=== PATIENT | male | born 1940 | race Caucasian/White ===

== ENCOUNTER 2017-09-27 09:35 | Day surgery (SDC) | payer BC, OTHER ==
[2017-09-26 09:55] VITALS: BMI 30.2
[2017-09-27] MEDS ORDERED: ACETAMINOPHEN 325 MG TABLET (FP) PO PRN (09:46)
[2017-09-27] MEDS ORDERED: GENTAMICIN SULFATE 0.3% OPHTHALMIC (EYE DROPS) 5ML BOTTLE ONE (10:15)
[2017-09-27] MEDS ORDERED: CYCLOPENTOLATE HCL 1% OPHTH SOLN 2 ML BOTTLE ONE (10:15)
[2017-09-27] MEDS ORDERED: PHENYLEPHRINE 2.5% OPHTH SOLN 15 ML BOTTLE ONE (10:16)
[2017-09-27] MEDS ORDERED: TROPICAMIDE 1% OPHTH SOLN 15 ML BOTTLE ONE (10:16)
[2017-09-27] MEDS ORDERED: KETOROLAC TROMETHAMINE 0.5% 5 ML BOTTLE OPTHALMIC ONE (10:16)
[2017-09-27] MEDS: KETOROLAC TROMETHAMINE 0.5% 5 ML BOTTLE OPTHALMIC OD SCH ×5 (10:40→11:00)
[2017-09-27] MEDS: CYCLOPENTOLATE HCL 1% OPHTH SOLN 2 ML BOTTLE OD SCH ×5 (10:40→11:00)
[2017-09-27] MEDS: TROPICAMIDE 1% OPHTH SOLN 15 ML BOTTLE OD SCH ×5 (10:40→11:00)
[2017-09-27] MEDS: GENTAMICIN SULFATE 0.3% OPHTHALMIC (EYE DROPS) 5ML BOTTLE OD SCH ×5 (10:40→11:00)
[2017-09-27] MEDS: PHENYLEPHRINE 2.5% OPHTH SOLN 15 ML BOTTLE OD SCH ×5 (10:40→11:00)
[2017-09-27] MEDS ORDERED: BUPIVACAINE HCL/PF 0.5% (5MG/ML) 10 ML VIAL ONE (10:44)
[2017-09-27] MEDS ORDERED: POVIDONE-IODINE 5% OPHTHALMIC PREP 30 ML SOLUTION ONE (10:44)
[2017-09-27] MEDS ORDERED: ACETYLCHOLINE 1:100 INTRA-OCUL 20 MG/2 ML KIT ONE ×2 (10:44→13:41)
[2017-09-27] MEDS ORDERED: LIDOCAINE HCL/PF 2% SDV 5ML VIAL ONE (10:44)
[2017-09-27] MEDS ORDERED: LACTATED RINGERS SOLUTION 1,000 ML IV SCH (11:00)
[2017-09-27] MEDS ORDERED: ONDANSETRON 4 MG/2 ML VIAL IVPUSH PRN (11:29)
[2017-09-27] MEDS ORDERED: MIDAZOLAM HCL 2 MG/2 ML SINGLE DOSE VIAL ONE ×2 (13:35→15:24)
[2017-09-27] MEDS ORDERED: TRYPAN BLUE 0.5 ML DISP.SYRIN ONE (14:20)
[2017-09-27] MEDS ORDERED: BSS (NA/CA/MG/K) BALANCED SALT SOLUTION OPHTH SOLN 15 ML BOTTLE ONE (15:57)
[2017-09-27 16:45] VITALS: TEMP 97.7
[2017-09-27 18:07] VITALS: BP 154/77; PULSE 88
--- NOTE | 2017-09-28 10:59 | OP ---
DATE OF OPERATION: 09/27/2017 AGE: [age] years old. SEX: Male. PREOPERATIVE DIAGNOSIS: Hypermature cataract, brunescent nucleus, right eye. POSTOPERATIVE DIAGNOSIS: Hypermature cataract, brunescent, right eye. PROCEDURE: Cataract extraction with use of trypan blue and iris hooks, with attempted phacoemulsification and subsequent conversion to extracapsular cataract extraction, right eye. ANESTHESIA: Topical with sedation. ESTIMATED BLOOD LOSS: Less than 1 mL. SURGEON: Claudio Durant MD GLUE REEL OPERATOR: Tiffanie Curran MD SPECIMENS: None. DESCRIPTION OF PROCEDURE: The patient was identified in the holding area. After all risks, benefits, and alternatives were explained to the patient including loss of vision, bleeding, infection, loss of the eye, need for future procedures down the road, , the informed consent was obtained. The right eye was marked with a marking pen. The patient then entered the operating room on an eye stretcher. After a formal timeout was performed, topical tetracaine eye drops were instilled onto the right eye. The right eye was then prepped and draped in the usual sterile fashion. A speculum was placed beneath the eyelids of the right eye. A superotemporal paracentesis incision was created using a 15-degree blade. Then, an air bubble was injected into the anterior chamber. Trypan blue was then used to stain the anterior capsule. Balanced saline solution was then used to irrigate all the trypan blue and air bubble out of the anterior chamber. Then, five equally spaced paracentesis incisions were created using a 15-degree blade. Then, through each of the five equally spaced paracentesis incisions, an iris hook was used and placed to capture and dilate the pupil to about 6 mm, and viscoelastic was injected into the anterior chamber. A 2.4-mm keratome blade was then used to make an inferotemporal incision. Then, a 360-degree, continuous curvilinear capsulorrhexis was then created using bent cystotome and Utrata forceps. Hydrodissection was performed using balanced saline solution on a cannula. Phacoemulsification was attempted to disassemble the nucleus. However, despite dense cataract settings, the lens was too dense to phacoemulsify completely. It was then determined to switch to an extracapsular cataract extraction. The anterior capsule was then freed up using a can-tape weaver technique to allow for the lens to prolapse appropriately. Then, the main wound was opened up to about 10 mm, and an interrupted 10-0 nylon suture was temporarily placed to secure the cornea. Then, using a lens hook/lens loop and a muscle loop/muscle hook, the lens was delivered with the lens loop outside of the eye. Upon inspection, there was noted to be dimming of the red reflex/loss of red reflex. Therefore, it was determined to immediately close the eye. The eye was closed using interrupted 10-0 nylon sutures. Of note, there were no intraocular contents that came out of the eye, and the eye maintained an adequate pressure throughout the whole procedure. No overt bleeding was noticed. All iris hooks were removed from the eye. Upon inspection, there was no more bleeding at all in the eye or outside of the eye. The wound was watertight, and the eye had an adequate pressure. Topical eye drops and ointment were then administered to the right eye. The eyelid speculum was removed from the right eye. The right eye was patched and shielded. The patient tolerated the procedure well and will be scheduled to see a retina/posterior segment subspecialist as soon as possible. CLAUDIO DURANT M.D. [id number]
== END 2017-09-27 18:00 | disposition home or self-care (01) ==
LOC: FASU 09:35
PROVIDERS: ATTEND Ophthalmology
PROC: 085K3ZZ Destruction of Left Lens, Percutaneous Approach (ICD-10-PCS; 2017-09-27)
PROC: 08DK3ZZ Extraction of Left Lens, Percutaneous Approach (ICD-10-PCS; principal; 2017-09-27 14:31)
DX: H25.11 Age-related nuclear cataract, right eye (principal)